=== PATIENT | female | born 1995 | race Hispanic/Latino ===

== ENCOUNTER 2016-10-20 18:53 | Emergency (ER) | payer OTHER ==
[~2016-10-20] VITALS: Ht 160 cm; Wt 95.3 kg
[2016-10-20 19:48] LABS: HEMATOCRIT 38.3 % (36.0-46.0); MCH 30.7 PG (29.0-34.0); MCHC 34.2 G/DL (30.0-36.0); MCV 89.7 FL (83-99); MEAN PLAT.VOLUME 11.1 uM^3 (9.5-12.4); PLATELET COUNT 208 K/uL (156-360); RBC DIS.WIDTH-CV 11.9 % (11.8-14.6); RBC DIS.WIDTH-SD 39.2 % (39-53); RED BLOOD COUNT 4.27 M/uL (3.80-5.20); WHITE BLOOD COUNT 5.6 K/uL (4.1-10.2)
[2016-10-20 19:58] LABS: CHLORIDE 108 mEq/L (99-109); POTASSIUM 3.7 mEq/L (3.7-5.4); SODIUM 143 mEq/L (136-147)
[2016-10-20 20:00] LABS: GLUCOSE 99 mg/dL (70-99)
[2016-10-20 20:01] LABS: ANION GAP 10 MEQ/L (2-14)
[2016-10-20 20:02] LABS: TOTAL BILIRUBIN 0.5 mg/dL (0.0-1.0)
[2016-10-20 20:03] LABS: ALKALINE PHOSPHATASE 81 IU/L (3-129); GFR ESTIMATE (CALCULATED) > 59 mL/min/
[2016-10-20 20:05] LABS: UREA NITROGEN (BUN) 13 mg/dL (9-23)
[2016-10-20 20:13] LABS: QUANTITATIVE HCG < 4.0 MIU/ML
[2016-10-20 20:38] LABS: ADD MIUA? YES; BILIRUBIN NEGATIVE; BLOOD SMALL; COLOR YELLOW ((YELLOW)); GLUCOSE (STRIP) NEGATIVE; KETONES NEGATIVE; LEUKOCYTES NEGATIVE; NITRITE NEGATIVE; PROTEIN (STRIP) NEGATIVE; SPECIFIC GRAVITY 1.019 (1.000-1.030); UROBILINOGEN 0.2 MG/DL (0.2-1.0)
[2016-10-20 20:51] LABS: BACTERIA RARE /HPF; EPITHELIAL CELLS RARE /HPF; MUCUS TRACE /LPF; RED BLOOD CELLS 0-5 /HPF (0-5); UCUL ADDED? NO; WHITE BLOOD CELLS 0-5 /HPF (0-5)
[2016-10-20] MEDS ORDERED: PERCOCET 5/31 TABLET PO (21:57)
[2016-10-20 22:09] VITALS: BP 133/67
== END 2016-10-20 22:11 | disposition home or self-care (01) ==
LOC: EME 18:53
DX: N83.201 Unspecified ovarian cyst, right side (principal)
CPT/HCPCS: 74176; 80053; 81003; 84702; 85027; 99281; 99285; J1885; J2405; J3010; J7030